=== PATIENT | male | born 1955 | race Caucasian/White ===

== ENCOUNTER 2019-08-28 21:07 | Inpatient (IN) | payer OTHER ==
[~2019-08-28] VITALS: Ht 188 cm; Wt 81.8 kg
[~2019-08-28 21:07] MED LIST: AMIODARONE 50 MG/ML, 3ML ONE; EPINEPHRINE SYRINGE 0.1 MG/ML, 10ML ONE; MIDAZOLAM 1 MG/ML, 5ML ONE; PROPOFOL 10 MG/ML, 100ML IV ONE
--- NOTE | 2019-08-28 21:18 | NUR ---
PROPOFOL INFUSING AT 10MCG, GIVEN AMIO 150MG IVP AT THIS TIME, PHARMACY CALLED FOR GTT.
[2019-08-28] MEDS ORDERED: ASPIRIN 325 MG TABLET PO STA (21:19)
[2019-08-28 21:26] LABS: MEAN CORPUSCULAR HEMOGLOBIN 32.2 pg (27.5-34.5); MEAN CORPUSCULAR HGB CONC 32.9 g/dL (33.2-36.2); MEAN CORPUSCULAR VOLUME 97.8 fL (81-97); MEAN PLATELET VOLUME 7.5 fL (7.4-10.4); PLATELET COUNT 272 x10^3/uL (130-400); RED BLOOD COUNT 4.86 x10^6/uL (4.38-5.82); RED CELL DISTRIBUTION WIDTH 13.7 % (9.4-14.8)
[2019-08-28] MEDS ORDERED: FILTER 0.22 MICRON IV PRN (21:30)
[2019-08-28] MEDS ORDERED: AMIODARONE IN D5W 100 ML IV ONE (21:30)
[2019-08-28] MEDS ORDERED: AMIODARONE 50 MG/ML, 3ML IVPush ONE (21:30)
[2019-08-28] MEDS ORDERED: AMIODARONE 900 MG in DEXTROSE 5% 482 ML IV PRN (21:30)
[2019-08-28] MEDS ORDERED: FENTANYL PF 100 MCG/2ML ONE ×2 (21:31→21:33)
[2019-08-28] MEDS ORDERED: LIDOCAINE 2%, 20ML ONE (21:33)
[2019-08-28] MEDS ORDERED: VERAPAMIL 2.5 MG/ML, 2ML ONE (21:33)
[2019-08-28] MEDS ORDERED: MIDAZOLAM 1 MG/ML, 5ML ONE (21:33)
[2019-08-28] MEDS ORDERED: TICAGRELOR 90 MG TABLET ONE (21:33)
[2019-08-28] MEDS ORDERED: BIVALIRUDIN 250 MG ONE ×2 (21:33→22:49)
[2019-08-28] MEDS ORDERED: HEPARIN 1,000 UNITS/ML, 10ML ONE (21:33)
[2019-08-28] MEDS ORDERED: NITROGLYCERIN 5 MG/ML, 10ML ONE (21:33)
--- NOTE | 2019-08-28 21:33 | NUR ---
PT MEDICATED WITH VERSED 5MG AND FENTANYL 100MCG WITH GOOD SEDATION PT AWAKE AND MOVING AROUND
--- NOTE | 2019-08-28 21:37 | NUR ---
16 GERMAN TEMP PROBE HODGE PLACED, 16FR OG TUBE PLACED AND PLACEMENT CONFIRMED BY AUSCULTATIONA ND ASPIRATION. RADIOLOGY TO BEDSIDE FOR FILM.
[2019-08-28 21:38] LABS: BASOPHILS # (AUTO) 0.04 x10^3/uL (0-0.1); BASOPHILS % (AUTO) 0 % (0-1); EOSINOPHILS # (AUTO) 0.25 x10^3/uL (0-0.4); EOSINOPHILS % (AUTO) 1 % (1-7); INTERNATIONAL NORMALIZED RATIO 1.02 (0.93-1.1); LYMPHOCYTES # (AUTO) 8.66 x10^3/uL (1-3.4); LYMPHOCYTES % (AUTO) 39 % (22-44); MD SCAN; MONOCYTES % (AUTO) 6 % (2-9); NEUTROPHILS # (AUTO) 11.68 x10^3/uL (1.8-6.8); NEUTROPHILS % (AUTO) 53 % (42-75); PROTHROMBIN TIME 10.7 Seconds (9.6-11.5)
[2019-08-28] MEDS ORDERED: PROPOFOL 100 ML IV PRN (22:00)
[2019-08-28] MEDS ORDERED: MIDAZOLAM 1 MG/ML, 2ML IVPush ONE (22:00)
[2019-08-28] MEDS ORDERED: FENTANYL PF 100 MCG/2ML IVPush ONE (22:00)
[2019-08-28] MEDS ORDERED: SODIUM CHLORIDE 0.9% 1,000 ML IV SCH (22:35)
[2019-08-28] MEDS ORDERED: BIVALIRUDIN 250 MG in SODIUM CHLORIDE 0.9% 50 ML IV SCH (22:35)
[2019-08-28] MEDS ORDERED: ASPIRIN 325 MG TABLET EC ONE (22:40)
[2019-08-28 23:08] VITALS: BP 105/69
[2019-08-28] MEDS ORDERED: PHENYLEPHRINE 10 MG/ML ONE (23:09)
[2019-08-28 23:51] LABS: MICROSCOPIC INDICATED
[2019-08-29 00:04] LABS: CULTURE INDICATED? YES
[2019-08-29] MEDS ORDERED: ONDANSETRON 2MG/ML, 2ML ONE (00:18)
[2019-08-29] MEDS ORDERED: PROPOFOL 100 ML IV PRN (00:19)
[2019-08-29] MEDS ORDERED: POLYETHYLENE GLYCOL 17 GM PACKET PO PRN (00:30)
[2019-08-29] MEDS: SODIUM CHLORIDE 0.9% 1,000 ML IV SCH ×2 (00:30→13:51)
[2019-08-29] MEDS ORDERED: LACTULOSE 20 GM/30 ML UDC NG PRN (00:30)
[2019-08-29] MEDS ORDERED: SENNA 176 MG/5 ML ORAL SOL NG PRN (00:30)
[2019-08-29] MEDS ORDERED: DOCUSATE 100 MG CAPSULE PO PRN (00:30)
[2019-08-29] MEDS ORDERED: BISACODYL 10 MG SUPP PR PRN ×2 (00:30)
[2019-08-29] MEDS ORDERED: SENNA/DOCUSATE TABLET NG PRN (00:30)
[2019-08-29] MEDS ORDERED: LIDOCAINE-MPF 1%, 2ML ENDO PRN (00:30)
[2019-08-29] MEDS ORDERED: PROMETHAZINE 25 MG/ML, 1ML IM PRN (00:30)
[2019-08-29] MEDS ORDERED: ONDANSETRON ODT 4 MG PO PRN (00:30)
[2019-08-29] MEDS ORDERED: PHARMACY MAY ADJ FOR RENAL FX MC SCH (00:30)
[2019-08-29] MEDS ORDERED: GLUCAGON 1 MG IM PRN (00:30)
[2019-08-29] MEDS ORDERED: morphine SULFATE 10 MG/ML, 1ML IVPush PRN (00:30)
[2019-08-29] MEDS ORDERED: DEXTROSE 4 GM TAB.CHEW PO PRN (00:30)
[2019-08-29] MEDS ORDERED: hydrALAzine 20 MG/ML, 1ML IVPush PRN (00:30)
[2019-08-29] MEDS ORDERED: DEXTROSE 50%, 50ML SYRINGE IVPush PRN (00:30)
[2019-08-29] MEDS ORDERED: FAMOTIDINE 20 MG/2 ML IV SCH (00:30)
[2019-08-29] MEDS ORDERED: OXYcodone IR 5MG TABLET PO PRN (00:30)
[2019-08-29] MEDS: ONDANSETRON 2MG/ML, 2ML IVPush PRN (01:09)
[2019-08-29] MEDS ORDERED: AMIODARONE 900 MG in DEXTROSE 5% 482 ML IV PRN (01:10)
[2019-08-29] MEDS: NICOTINE 7 MG/24 HR PATCH.TD24 TD SCH (01:20)
[2019-08-29] MEDS: MIDAZOLAM HCL 25 MG in SODIUM CHLORIDE 0.9% 245 ML IV PRN ×5 (01:23→20:46)
[2019-08-29] MEDS ORDERED: SODIUM CHLORIDE 0.9%, 500ML IVBOLUS ONE (01:30)
[2019-08-29] MEDS ORDERED: MIDAZOLAM HCL 25 MG in SODIUM CHLORIDE 0.9% 245 ML IV PRN (01:30)
[2019-08-29 03:13] LABS: ALANINE AMINOTRANSFERASE 244 U/L (12-78); ALBUMIN 3.2 g/dL (3.4-5.0); ANION GAP 4 mmol/L (5-15); CALCIUM 7.1 mg/dL (8.5-10.1); CHLORIDE 112 mmol/L (98-107); CREATININE 1.14 mg/dL (0.7-1.3)
[2019-08-29 03:24] LABS: ALKALINE PHOSPHATASE 74 U/L (45-117); BILIRUBIN,TOTAL 0.5 mg/dL (0.2-1.0); FREE T4 (FREE THYROXINE) 0.96 ng/dL (0.76-1.46); TOTAL PROTEIN 5.9 g/dL (6.4-8.2); TRIGLYCERIDES 181 mg/dL (50-200)
[2019-08-29 03:28] LABS: HEMOGLOBIN A1C 5.3 % (4.2-6.3)
[2019-08-29 03:34] LABS: AMPHETAMINE SCREEN, URINE Negative (Negative); BARBITURATE SCREEN, URINE Negative (Negative); BENZODIAZEPINE SCREEN, URINE Positive (Negative); CANNABINOID SCREEN, URINE Positive (Negative); COCAINE SCREEN, URINE Negative (Negative); METHADONE SCREEN, URINE Negative (Negative); OPIATE SCREEN, URINE Negative (Negative)
[2019-08-29] MEDS ORDERED: FILTER 0.22 MICRON IV PRN (05:00)
[2019-08-29] MEDS: FENTANYL PF 100 MCG/2ML IVPush PRN ×5 (05:41→18:37)
[2019-08-29] MEDS: ATORVASTATIN 80 MG TABLET PO SCH ×2 (06:00→20:45)
[2019-08-29 06:30] LABS: MEAN CORPUSCULAR HEMOGLOBIN 32.1 pg (27.5-34.5); MEAN CORPUSCULAR HGB CONC 33.2 g/dL (33.2-36.2); MEAN CORPUSCULAR VOLUME 96.6 fL (81-97); MEAN PLATELET VOLUME 7.4 fL (7.4-10.4); PLATELET COUNT 229 x10^3/uL (130-400); RED BLOOD COUNT 4.65 x10^6/uL (4.38-5.82); RED CELL DISTRIBUTION WIDTH 13.4 % (9.4-14.8)
[2019-08-29 06:41] LABS: ALANINE AMINOTRANSFERASE 252 U/L (12-78); ALBUMIN 3.3 g/dL (3.4-5.0); ANION GAP 6 mmol/L (5-15); CALCIUM 7.2 mg/dL (8.5-10.1); CHLORIDE 113 mmol/L (98-107); CHOLESTEROL, TOTAL 181 mg/dL (140-239); CREATININE 1.01 mg/dL (0.7-1.3)
[2019-08-29 06:43] LABS: ALKALINE PHOSPHATASE 73 U/L (45-117); BILIRUBIN,TOTAL 0.6 mg/dL (0.2-1.0); TRIGLYCERIDES 128 mg/dL (50-200)
[2019-08-29 06:44] LABS: HDL CHOLESTEROL (DIRECT) 38 mg/dL (40-60); VLDL CHOLESTEROL 26 mg/dL (0-25)
[2019-08-29 06:51] LABS: CHOL/HDL RATIO 4.7; HDL CHOL % 21 % (26-37); LDL CHOLESTEROL,CALCULATED 116 mg/dL (54-169); LDL/HDL RATIO 3.1 (0.5-3.0)
[2019-08-29] MEDS: INSULIN LISPRO 100 UNITS/ML, PEN SQ-INSULIN SCH ×3 (07:00→20:46)
[2019-08-29 07:52] LABS: BASOPHILS # (AUTO) 0.02 x10^3/uL (0-0.1); BASOPHILS % (AUTO) 0 % (0-1); EOSINOPHILS # (AUTO) 0.09 x10^3/uL (0-0.4); EOSINOPHILS % (AUTO) 1 % (1-7); LYMPHOCYTES # (AUTO) 0.64 x10^3/uL (1-3.4); LYMPHOCYTES % (AUTO) 4 % (22-44); MD SCAN; MONOCYTES # (AUTO) 0.52 x10^3/uL (0.2-0.8); MONOCYTES % (AUTO) 4 % (2-9); NEUTROPHILS % (AUTO) 91 % (42-75)
[2019-08-29] MEDS ORDERED: EZET10TA70 PO (07:55)
[2019-08-29] MEDS ORDERED: OMEP-110 PO (07:55)
[2019-08-29] MEDS ORDERED: MONT10TA9 PO (07:55)
[2019-08-29] MEDS ORDERED: FLUT15.845 NAS (07:55)
[2019-08-29] MEDS: SODIUM CHLORIDE FLUSH 10ML SYR IVF SCH ×2 (09:00→22:08)
[2019-08-29] MEDS: PANTOPRAZOLE 40 MG IV IVPush SCH (09:03)
[2019-08-29] MEDS: TICAGRELOR 90 MG TABLET PO SCH ×2 (09:04→20:45)
[2019-08-29] MEDS: ASPIRIN 81 MG TABLET EC PO SCH (09:04)
[2019-08-29] MEDS: CEFTRIAXONE PMX 2GM/50ML 50 ML IVPB SCH (09:49)
[2019-08-29] MEDS: METRONIDAZOLE PMX 500MG/100ML 100 ML IV SCH ×3 (10:49→22:08)
[2019-08-30] MEDS: FENTANYL PF 100 MCG/2ML IVPush PRN ×3 (00:46→08:00)
[2019-08-30] MEDS: NICOTINE 7 MG/24 HR PATCH.TD24 TD SCH ×2 (01:14→23:21)
[2019-08-30] MEDS: MIDAZOLAM HCL 25 MG in SODIUM CHLORIDE 0.9% 245 ML IV PRN ×2 (01:19→06:46)
[2019-08-30] MEDS: INSULIN LISPRO 100 UNITS/ML, PEN SQ-INSULIN SCH ×2 (03:00→09:00)
[2019-08-30] MEDS: METRONIDAZOLE PMX 500MG/100ML 100 ML IV SCH ×4 (04:31→22:00)
[2019-08-30 05:00] LABS: BASOPHILS # (AUTO) 0.03 x10^3/uL (0-0.1); BASOPHILS % (AUTO) 0 % (0-1); EOSINOPHILS # (AUTO) 0.09 x10^3/uL (0-0.4); EOSINOPHILS % (AUTO) 1 % (1-7); LYMPHOCYTES # (AUTO) 1.93 x10^3/uL (1-3.4); LYMPHOCYTES % (AUTO) 16 % (22-44); MD NO; MEAN CORPUSCULAR HEMOGLOBIN 32.1 pg (27.5-34.5); MEAN CORPUSCULAR HGB CONC 33.3 g/dL (33.2-36.2); MEAN CORPUSCULAR VOLUME 96.4 fL (81-97); MEAN PLATELET VOLUME 7.6 fL (7.4-10.4); MONOCYTES # (AUTO) 0.85 x10^3/uL (0.2-0.8); MONOCYTES % (AUTO) 7 % (2-9); NEUTROPHILS % (AUTO) 76 % (42-75); PLATELET COUNT 197 x10^3/uL (130-400); RED BLOOD COUNT 4.23 x10^6/uL (4.38-5.82); RED CELL DISTRIBUTION WIDTH 13.9 % (9.4-14.8)
[2019-08-30 05:10] LABS: CALCIUM 7.3 mg/dL (8.5-10.1); CHLORIDE 110 mmol/L (98-107)
[2019-08-30 05:16] LABS: ALANINE AMINOTRANSFERASE 168 U/L (12-78); ALKALINE PHOSPHATASE 59 U/L (45-117); ANION GAP 4 mmol/L (5-15); BILIRUBIN,TOTAL 0.5 mg/dL (0.2-1.0); CREATININE 0.83 mg/dL (0.7-1.3); TOTAL PROTEIN 5.6 g/dL (6.4-8.2)
[2019-08-30] MEDS: PANTOPRAZOLE 40 MG IV IVPush SCH (07:35)
[2019-08-30] MEDS: SODIUM CHLORIDE FLUSH 10ML SYR IVF SCH ×2 (07:35→20:02)
[2019-08-30] MEDS: TICAGRELOR 90 MG TABLET PO SCH ×2 (07:35→20:04)
[2019-08-30] MEDS: ASPIRIN 81 MG TABLET EC PO SCH (07:35)
[2019-08-30] MEDS: NEUTRA PHOS K 250 MG TABLET PO SCH ×2 (07:35→20:04)
[2019-08-30] MEDS ORDERED: AMIODARONE 200 MG TABLET ONE (09:14)
[2019-08-30] MEDS ORDERED: CARVEDILOL 3.125 MG TABLET ONE (09:14)
[2019-08-30] MEDS: CARVEDILOL 3.125 MG TABLET PO SCH ×2 (09:16→17:06)
[2019-08-30] MEDS: AMIODARONE 200 MG TABLET PO SCH ×2 (09:16→20:04)
[2019-08-30] MEDS: ENOXAPARIN 40 MG/0.4 ML SQ SCH (09:16)
[2019-08-30] MEDS: CEFTRIAXONE PMX 2GM/50ML 50 ML IVPB SCH (09:17)
[2019-08-30] MEDS ORDERED: ALBUTEROL/IPRATROPIUM 2.5MG/0.5MG, 3 ML NPPB PRN (11:00)
[2019-08-30] MEDS: ATORVASTATIN 80 MG TABLET PO SCH (20:04)
[2019-08-30] MEDS: ACETAMINOPHEN 325 MG TABLET PO PRN (20:04)
[2019-08-30] MEDS: EZETIMIBE 10 MG TABLET PO SCH (22:00)
[2019-08-31] MEDS: METRONIDAZOLE PMX 500MG/100ML 100 ML IV SCH (04:01)
[2019-08-31 04:22] LABS: BASOPHILS # (AUTO) 0.06 x10^3/uL (0-0.1); BASOPHILS % (AUTO) 1 % (0-1); EOSINOPHILS # (AUTO) 0.05 x10^3/uL (0-0.4); EOSINOPHILS % (AUTO) 0 % (1-7); LYMPHOCYTES # (AUTO) 1.67 x10^3/uL (1-3.4); LYMPHOCYTES % (AUTO) 16 % (22-44); MD NO; MEAN CORPUSCULAR HEMOGLOBIN 31.8 pg (27.5-34.5); MEAN CORPUSCULAR HGB CONC 33.1 g/dL (33.2-36.2); MEAN CORPUSCULAR VOLUME 96.2 fL (81-97); MEAN PLATELET VOLUME 7.6 fL (7.4-10.4); MONOCYTES # (AUTO) 0.72 x10^3/uL (0.2-0.8); MONOCYTES % (AUTO) 7 % (2-9); NEUTROPHILS # (AUTO) 8.01 x10^3/uL (1.8-6.8); NEUTROPHILS % (AUTO) 76 % (42-75); PLATELET COUNT 178 x10^3/uL (130-400); RED BLOOD COUNT 4.14 x10^6/uL (4.38-5.82); RED CELL DISTRIBUTION WIDTH 13.5 % (9.4-14.8)
[2019-08-31 04:34] LABS: ANION GAP 5 mmol/L (5-15); CALCIUM 7.6 mg/dL (8.5-10.1); CHLORIDE 114 mmol/L (98-107); CREATININE 0.91 mg/dL (0.7-1.3)
[2019-08-31] MEDS: CARVEDILOL 3.125 MG TABLET PO SCH ×2 (06:20→17:04)
[2019-08-31] MEDS ORDERED: POTASSIUM CHLORIDE 20 MEQ TAB.ER.PRT PO ONE (06:30)
[2019-08-31] MEDS: LISINOPRIL 5 MG TABLET PO SCH (08:57)
[2019-08-31] MEDS: ASPIRIN 81 MG TABLET EC PO SCH (08:57)
[2019-08-31] MEDS: TICAGRELOR 90 MG TABLET PO SCH ×2 (08:57→20:57)
[2019-08-31] MEDS: ENOXAPARIN 40 MG/0.4 ML SQ SCH (08:57)
[2019-08-31] MEDS: NEUTRA PHOS K 250 MG TABLET PO SCH ×2 (08:58→20:57)
[2019-08-31] MEDS: AMIODARONE 200 MG TABLET PO SCH ×2 (08:58→20:57)
[2019-08-31] MEDS: CEFTRIAXONE PMX 2GM/50ML 50 ML IVPB SCH (09:02)
[2019-08-31] MEDS: SODIUM CHLORIDE FLUSH 10ML SYR IVF SCH ×2 (09:02→21:01)
[2019-08-31] MEDS: ONDANSETRON 2MG/ML, 2ML IVPush PRN ×2 (11:54→21:10)
[2019-08-31 13:00] VITALS: BP 114/71
[2019-08-31] MEDS ORDERED: TRAZODONE 50MG TABLET PO PRN (17:30)
[2019-08-31] MEDS: EZETIMIBE 10 MG TABLET PO SCH (20:57)
[2019-08-31 21:54] VITALS: BP 116/74
[2019-09-01] VITALS (11 sets, daily range): BP systolic 102–132; BP diastolic 55–72
[2019-09-01] MEDS: NICOTINE 7 MG/24 HR PATCH.TD24 TD SCH (00:30)
[2019-09-01] MEDS: NITROGLYCERIN 0.4 MG BOTTLE (25 TABS) SL PRN ×3 (01:23→01:37)
[2019-09-01] MEDS ORDERED: NITROGLYCERIN 0.4 MG/SPRAY SL PRN (01:30)
[2019-09-01] MEDS: ACETAMINOPHEN 325 MG TABLET PO PRN (02:01)
[2019-09-01 05:17] LABS: BASOPHILS # (AUTO) 0.08 x10^3/uL (0-0.1); BASOPHILS % (AUTO) 1 % (0-1); EOSINOPHILS # (AUTO) 0.07 x10^3/uL (0-0.4); EOSINOPHILS % (AUTO) 1 % (1-7); LYMPHOCYTES # (AUTO) 1.77 x10^3/uL (1-3.4); LYMPHOCYTES % (AUTO) 20 % (22-44); MD NO; MEAN CORPUSCULAR HEMOGLOBIN 31.7 pg (27.5-34.5); MEAN CORPUSCULAR HGB CONC 33.4 g/dL (33.2-36.2); MEAN CORPUSCULAR VOLUME 94.9 fL (81-97); MEAN PLATELET VOLUME 7.6 fL (7.4-10.4); MONOCYTES % (AUTO) 7 % (2-9); NEUTROPHILS # (AUTO) 6.26 x10^3/uL (1.8-6.8); NEUTROPHILS % (AUTO) 71 % (42-75); PLATELET COUNT 172 x10^3/uL (130-400); RED BLOOD COUNT 3.92 x10^6/uL (4.38-5.82); RED CELL DISTRIBUTION WIDTH 13.4 % (9.4-14.8)
[2019-09-01 05:29] LABS: ALBUMIN 2.9 g/dL (3.4-5.0); ANION GAP 6 mmol/L (5-15); CALCIUM 7.8 mg/dL (8.5-10.1); CHLORIDE 112 mmol/L (98-107)
[2019-09-01 05:34] LABS: ALANINE AMINOTRANSFERASE 89 U/L (12-78); ALKALINE PHOSPHATASE 63 U/L (45-117); BILIRUBIN,TOTAL 0.8 mg/dL (0.2-1.0); CREATINE KINASE, TOTAL 500 U/L (39-308); CREATININE 0.87 mg/dL (0.7-1.3); TOTAL PROTEIN 5.7 g/dL (6.4-8.2)
[2019-09-01] MEDS ORDERED: PANTOPROZOLE 40MG TABLET PO SCH (06:00)
[2019-09-01] MEDS: CARVEDILOL 3.125 MG TABLET PO SCH (06:16)
[2019-09-01] MEDS ORDERED: POTASSIUM CHLORIDE 20 MEQ TAB.ER.PRT PO ONE (06:30)
[2019-09-01] MEDS ORDERED: AMIODARONE 200 MG TABLET ONE (08:59)
[2019-09-01] MEDS: CEFTRIAXONE PMX 2GM/50ML 50 ML IVPB SCH (09:18)
[2019-09-01] MEDS: ENOXAPARIN 40 MG/0.4 ML SQ SCH (09:18)
[2019-09-01] MEDS: ASPIRIN 81 MG TABLET EC PO SCH (09:19)
[2019-09-01] MEDS: TICAGRELOR 90 MG TABLET PO SCH (09:19)
[2019-09-01] MEDS: SODIUM CHLORIDE FLUSH 10ML SYR IVF SCH (09:19)
[2019-09-01] MEDS: LISINOPRIL 5 MG TABLET PO SCH (09:19)
[2019-09-01] MEDS ORDERED: TICA90TA PO (12:29)
[2019-09-01] MEDS ORDERED: LISI5TAB7 PO (12:29)
[2019-09-01] MEDS ORDERED: CARV3.1212 PO (12:29)
[2019-09-01] MEDS ORDERED: PRAV20TA PO (12:29)
[2019-09-01] MEDS ORDERED: ASPI81TA45 PO (12:29)
[2019-09-01] MEDS ORDERED: ALPR0.5T7 PO (15:11)
[2019-09-01] MEDS ORDERED: PRAVASTATIN 20 MG TABLET PO SCH (21:00)
== END 2019-09-01 15:27 | disposition home health service (06) | DRG 246 ==
LOC: ED 21:33 → EDIP 23:44 → CCU 23:52 → 5SO 08-31 11:39 → DCLOUNGE 09-01 15:02
PROVIDERS: ADMIT Internal Medicine; ATTEND Hospitalist
PROC: 0T9B70Z Drainage of Bladder with Drainage Device, Via Natural or Artificial Opening (ICD-10-PCS; principal; 2019-08-28)
PROC: 027035Z Dilation of Coronary Artery, One Artery with Two Drug-eluting Intraluminal Devices, Percutaneous Approach (ICD-10-PCS; 2019-08-28)
PROC: 4A023N7 Measurement of Cardiac Sampling and Pressure, Left Heart, Percutaneous Approach (ICD-10-PCS; 2019-08-28)
PROC: B2111ZZ Fluoroscopy of Multiple Coronary Arteries using Low Osmolar Contrast (ICD-10-PCS; 2019-08-28)
PROC: B2151ZZ Fluoroscopy of Left Heart using Low Osmolar Contrast (ICD-10-PCS; 2019-08-28)
DX: I21.09 ST elevation (STEMI) myocardial infarction involving other coronary artery of anterior wall (principal); I49.01 Ventricular fibrillation; J96.01 Acute respiratory failure with hypoxia; R57.0 Cardiogenic shock; J18.9 Pneumonia, unspecified organism; K72.00 Acute and subacute hepatic failure without coma; E87.2 Acidosis; G93.1 Anoxic brain damage, not elsewhere classified; I50.22 Chronic systolic (congestive) heart failure; I47.2 Ventricular tachycardia; Z99.11 Dependence on respirator [ventilator] status; E78.5 Hyperlipidemia, unspecified; E87.6 Hypokalemia; F12.90 Cannabis use, unspecified, uncomplicated; F17.210 Nicotine dependence, cigarettes, uncomplicated; G89.29 Other chronic pain; I11.0 Hypertensive heart disease with heart failure; I25.10 Atherosclerotic heart disease of native coronary artery without angina pectoris; I25.2 Old myocardial infarction; I25.5 Ischemic cardiomyopathy; I25.82 Chronic total occlusion of coronary artery; I48.91 Unspecified atrial fibrillation; K21.9 Gastro-esophageal reflux disease without esophagitis; Z98.1 Arthrodesis status; Z95.5 Presence of coronary angioplasty implant and graft; Z79.82 Long term (current) use of aspirin
CPT/HCPCS: 36415; 36600; 84145; 93458; J3490; 70450; 71045; 80047; 80048; 80053; 80061; 80307; 81001; 82550; 82803; 82962; 83036; 83605; 83735; 83880; 84100; 84439; 84443; 84478; 84484; 85025; 85610; 85730; 87070; 87081; 87086; 87205; 93005; 93308; 93321; 93325; 94002; 94003; C1769; C1894; G0378; J0583; J0696; J1644; J1650; J2250; J2405; J2704; J3010; 92523-GN; C1725; C1874; C1887; C9113; J0282; J2370; J7030; J7040; J7050; J7060; Q9967

== ENCOUNTER 2019-11-05 15:21 | Outpatient (CLI) | payer OTHER ==
[~2019-11-05 15:21] MED LIST changes: +ALPR0.5T7 PO; -AMIODARONE 50 MG/ML, 3ML ONE; +ASPI81TA45 PO; +CARV3.1212 PO; -EPINEPHRINE SYRINGE 0.1 MG/ML, 10ML ONE; +EZET10TA70 PO; +FLUT15.845 NAS; +LISI5TAB7 PO; -MIDAZOLAM 1 MG/ML, 5ML ONE; +MONT10TA9 PO; +OMEP-110 PO; +PRAV20TA PO; -PROPOFOL 10 MG/ML, 100ML IV ONE; +TICA90TA PO
== END 2019-11-05 23:59 | disposition home or self-care (01) ==
LOC: CFH 15:21
PROVIDERS: ATTEND Internal Medicine Cardiovascular Disease
DX: I08.0 Rheumatic disorders of both mitral and aortic valves (principal); I50.23 Acute on chronic systolic (congestive) heart failure
CPT/HCPCS: 93306

== ENCOUNTER → 2020-10-27 | Outpatient (CLI) | payer OTHER ==
[~2020-10-27] MED LIST changes: -MONT10TA9 PO; +MONT10TA96 PO
== END | disposition home or self-care (01) ==
LOC: CFH 12:34
PROVIDERS: ATTEND Internal Medicine Cardiovascular Disease
DX: Z98.61 Coronary angioplasty status (principal); I46.8 Cardiac arrest due to other underlying condition
CPT/HCPCS: 78452; 93017; A9502

== ENCOUNTER → 2021-05-04 | Outpatient (CLI) | payer OTHER ==
[~2021-05-04] MED LIST changes: +MONT10TA17 PO; -MONT10TA96 PO
== END | disposition home or self-care (01) ==
LOC: CVU 15:50
PROVIDERS: ATTEND Internal Medicine Cardiovascular Disease
DX: I08.0 Rheumatic disorders of both mitral and aortic valves (principal); I10 Essential (primary) hypertension; I25.10 Atherosclerotic heart disease of native coronary artery without angina pectoris; I25.2 Old myocardial infarction; E78.5 Hyperlipidemia, unspecified
CPT/HCPCS: 93306